=== PATIENT | male | born 1935 | race Caucasian/White ===

== ENCOUNTER → 2018-08-16 | Outpatient (CLI) | payer OTHER, BC ==
[~2018-08-16] MED LIST: AMBIEN 5 MG TABL5 M1 PO; ASPIR 8181 MG PO; CLARITIN5 MG PO; DEEP SEA NASAL44 M1 NS; DIOVAN 80 MG TA80 M1 PO; HYDROCHLOROTH12.5 M1 PO; HYDROCHLOROTHIA25 M2 PO; LIPITOR 20 MG T20 M1 PO; LIPITOR10 MG PO; LOSARTAN POTAS100 MG PO; NORVASC10 MG PO
== END ==
LOC: RAD 16:35
DX: M17.11 Unilateral primary osteoarthritis, right knee (principal); M25.562 Pain in left knee; G89.29 Other chronic pain; Z88.5 Allergy status to narcotic agent

== ENCOUNTER → 2021-02-22 | Outpatient (CLI) | payer OTHER, BC | LOC: CAT 09:54 | PROVIDERS: ATTEND Family Medicine | DX: I25.10 Atherosclerotic heart disease of native coronary artery without angina pectoris (principal); R91.8 Other nonspecific abnormal finding of lung field ==